=== PATIENT | male | born 1960 | race African-American/Black ===

== ENCOUNTER 2017-06-16 14:05 | Inpatient (IN) | payer SELFPAY ==
[~2017-06-16] VITALS: Ht 177.8 cm; Wt 89.0 kg
[2017-06-16] VITALS (10 sets, daily range): BP systolic 104–124; BP diastolic 70–82; PULSE 64–105; RESP 18–20; TEMP 97.4–98.8; O2SAT 96–100
[2017-06-16] MEDS ORDERED: SODIUM CHLORIDE 0.9% FLUSH 10 ML FLUSH IVF PRN (15:00)
[2017-06-16] MEDS ORDERED: HEPARIN SODIUM - IV 10,000 UNITS/10 ML VIAL IV PUSH STA (15:01)
[2017-06-16] MEDS ORDERED: ASPIRIN 81 MG CHEW TAB PO STA (15:01)
--- NOTE | 2017-06-16 15:08 | PD ---
HPI Chief Complaint: STEMI Alert Time Seen by Provider: 14:57 Travel History International Travel<30 days: No Contact w/Intl Traveler<30days: No Traveled to known affect area: No History of Present Illness HPI Patient is a 56-year-old male who presents the emergency room complaints of chest pain and shortness of breath. Patient reports that chest pain began last night around 1 AM, reports that he felt a "pressure to my chest." Patient reports that along with his chest pain, he has been feeling very short of breath. Patient reports that chest pain lasted from 1AM- 6AM, reports that his substernal "pressure" to his chest has resolved. Patient reports that he was concerned that he was still short of breath. Patient reports no medical history as he does not see a physician as outpatient. Patient reports that he is not a smoker, currently takes no medications. PFSH Past Medical History Medical History: Denies Significant Hx Tetanus Vaccination: Unknown Influenza Vaccination: No ?: Not Past Surgical History Surgical History: No Previous Surgery Social History Alcohol Use: No Tobacco Use: No Substance Use: No Allergies-Medications (Allergen,Severity, Reaction): Coded Allergies: No Known Allergies (Unverified , 06/16/17) Reported Meds & Prescriptions Reported Meds & Active Scripts Active No Active Prescriptions or Reported Medications Review of Systems General / Constitutional: No: Fever Eyes: No: Visual changes HENT: No: Headaches Cardiovascular: Positive: Chest Pain or Discomfort Respiratory: Positive: Shortness of Breath Gastrointestinal: No: Abdominal Pain Genitourinary: No: Dysuria Musculoskeletal: No: Pain Skin: No Rash Neurologic: No: Weakness Psychiatric: No: Depression Endocrine: No: Polydipsia Hematologic/Lymphatic: No: Easy Bruising Physical Exam Narrative GENERAL: Moderate distress SKIN: Focused skin assessment warm/dry. HEAD: Atraumatic. Normocephalic. EYES: Pupils equal and round. No scleral icterus. No injection or drainage. ENT: No nasal bleeding or discharge. Mucous membranes pink and moist. NECK: Trachea midline. No JVD. CARDIOVASCULAR: Regular rate and rhythm. No murmur appreciated. RESPIRATORY: No accessory muscle use. Clear to auscultation. Breath sounds equal bilaterally. GASTROINTESTINAL: Abdomen soft, non-tender, nondistended. Hepatic and splenic margins not palpable. MUSCULOSKELETAL: No obvious deformities. No clubbing. No cyanosis. No edema. NEUROLOGICAL: Awake and alert. No obvious cranial nerve deficits. Motor grossly within normal limits. Normal speech. PSYCHIATRIC: Appropriate mood and affect; insight and judgment normal. Data Data Last Documented VS Vital Signs Date Time Temp Pulse Resp B/P (MAP) Pulse Ox O2 Delivery O2 Flow Rate FiO2 06/16/17 15:07 06/16/17 14:47 99 Nasal Cannula 2.00 06/16/17 14:44 67 18 06/16/17 14:24 97.4 Orders Orders Electrocardiogram (06/16/17 ) Electrocardiogram (06/16/17 14:55) Ckmb (Isoenzyme) Profile (06/16/17 14:55) Complete Blood Count With Diff (06/16/17 14:55) Comprehensive Metabolic Panel (06/16/17 14:55) Magnesium (Mg) (06/16/17 14:55) Prothrombin Time / Inr (Pt) (06/16/17 14:55) Act Partial Throm Time (Ptt) (06/16/17 14:55) Troponin I (06/16/17 14:55) Lipase (06/16/17 14:55) Chest, Single Ap (06/16/17 14:55) Ecg Monitoring (06/16/17 14:55) Bilateral Bp Monitoring (06/16/17 14:55) Iv Access Insert/Monitor (06/16/17 14:55) Oximetry (06/16/17 14:55) Oxygen Administration (06/16/17 14:55) Sodium Chloride 0.9% Flush (Ns Flush) (06/16/17 15:00) I-Stat Profile (06/16/17 14:59) I-Stat Creatinine (06/16/17 14:59) Aspirin Chew (Aspirin Chew) (06/16/17 15:01) Heparin Inj (Heparin Inj) (06/16/17 15:01) Cardiac Catheterization (06/16/17 ) Admit Order (Ed Use Only) (06/16/17 15:08) CKMB (06/16/17 15:00) CKMB% (06/16/17 15:00) Labs Laboratory Tests Test 06/16/17 15:00 06/16/17 15:04 White Blood Count 8.4 TH/MM3 Red Blood Count 6.13 MIL/MM3 Hemoglobin 16.7 GM/DL Hematocrit 47.4 % Mean Corpuscular Volume 77.3 FL Mean Corpuscular Hemoglobin 27.3 PG Mean Corpuscular Hemoglobin Concent 35.3 % Red Cell Distribution Width 14.5 % Platelet Count 205 TH/MM3 Mean Platelet Volume 9.1 FL Neutrophils (%) (Auto) 81.9 % Lymphocytes (%) (Auto) 11.1 % Monocytes (%) (Auto) 6.2 % Eosinophils (%) (Auto) 0.1 % Basophils (%) (Auto) 0.7 % Neutrophils # (Auto) 6.9 TH/MM3 Lymphocytes # (Auto) 0.9 TH/MM3 Monocytes # (Auto) 0.5 TH/MM3 Eosinophils # (Auto) 0.0 TH/MM3 Basophils # (Auto) 0.1 TH/MM3 CBC Comment DIFF FINAL Differential Comment Prothrombin Time 10.3 SEC Prothromb Time International Ratio 1.0 RATIO Activated Partial Thromboplast Time 24.0 SEC Blood Urea Nitrogen 8 MG/DL Creatinine 0.98 MG/DL Random Glucose 150 MG/DL Total Protein 8.0 GM/DL Albumin 3.7 GM/DL Calcium Level 9.2 MG/DL Magnesium Level 2.0 MG/DL Alkaline Phosphatase 101 U/L Aspartate Amino Transf (AST/SGOT) 131 U/L Alanine Aminotransferase (ALT/SGPT) 36 U/L Total Bilirubin 0.5 MG/DL Sodium Level 139 MEQ/L Potassium Level 4.0 MEQ/L Chloride Level 103 MEQ/L Carbon Dioxide Level 24.7 MEQ/L Anion Gap 11 MEQ/L Estimat Glomerular Filtration Rate 96 ML/MIN Total Creatine Kinase 1120 U/L Creatine Kinase MB 189.1 NG/ML Creatine Kinase MB % 16.9 % Troponin I 6.28 NG/ML Lipase 107 U/L Bedside Hemoglobin 16.3 G/DL Bedside Hematocrit 48.0 % Bedside Sodium 136 MMOL/L Bedside Potassium 4.0 MMOL/L Bedside Chloride 101 MMOL/L Bedside Blood Urea Nitrogen 6 MG/DL Bedside Creatinine 0.9 MG/DL Bedside Glucose 166 MG/DL [facility] Medical Decision Making Medical Screen Exam Complete: Yes Emergency Medical Condition: Yes Medical Record Reviewed: Yes Interpretation(s) EKG at 1448: NSR at 67bpm, qt/qtc: 394/410, patient with st seg elevation II, III, aVF, no previous ekg to compare Differential Diagnosis STEMI, arrhythmia Narrative Course During the course of the patients emergency department visit, the patients history, examination, and differential diagnosis were reviewed with the patient. The patient was placed on a buggy loader with oximetry and frequent blood pressure monitoring. The patient had an IV access obtained and blood work sent for analysis. The patient was initially provided aspirin as well as IV heparin. Patient's EKG concerning for ST segment elevations in the inferior leads, there are no prior EKGs to compare. Patient currently denies active chest pain at this time, reports shortness of breath only. case reviewed with Dr. Jimenez who will take patient to collaborative teacher. STEMI alert called overhead. Diagnosis Primary Impression: ST elevation (STEMI) myocardial infarction Qualified Codes: I21.3 - ST elevation (STEMI) myocardial infarction of unspecified site Admitting Information Admitting Physician Requests: Admit Scripts No Active Prescriptions or Reported Meds Yuliana Clemons DO Jun 16, 2017 15:08
[2017-06-16] MEDS ORDERED: MIDAZOLAM HCL 2 MG/2 ML VIAL ONE (15:16)
[2017-06-16 15:20] LABS: AUTOMATED NEUTROPHIL # 6.9 TH/MM3 (1.8-7.7); BASOPHIL # 0.1 TH/MM3 (0-0.2); BASOPHIL % 0.7 % (0.0-2.0); EOSINOPHIL % 0.1 % (0.0-4.0); HEMATOCRIT 47.4 % (39.0-51.0); HEMOGLOBIN 16.7 GM/DL (13.0-17.0); LYMPH % 11.1 % (9.0-44.0); LYMPHOCYTE # 0.9 TH/MM3 (1.0-4.8); MEAN CELL VOLUME 77.3 FL (80.0-100.0); MEAN CORPUSCULAR HEMOGLOBIN 27.3 PG (27.0-34.0); MEAN CORPUSCULAR HGB CONC 35.3 % (32.0-36.0); MEAN PLATELET VOLUME 9.1 FL (7.0-11.0); MONO % 6.2 % (0.0-8.0); MONOCYTE # 0.5 TH/MM3 (0-0.9); NEUT % 81.9 % (16.0-70.0); PLATELET COUNT 205 TH/MM3 (150-450); RED BLOOD COUNT 6.13 MIL/MM3 (4.50-5.90); RED CELL DISTRIBUTION WIDTH 14.5 % (11.6-17.2); WHITE BLOOD COUNT 8.4 TH/MM3 (4.0-11.0)
[2017-06-16] MEDS ORDERED: CANGRELOR TETRASODIUM 50,000 MCG VIAL ONE (15:24)
--- NOTE | 2017-06-16 15:25 | RADRPT ---
EXAM DATE/TIME: 06/16/2017 15:04 [place] COMPARISON: No previous studies available for comparison. INDICATIONS : Stemi alert MEDICAL HISTORY : Unobtainable SURGICAL HISTORY : Unobtainable ENCOUNTER: Initial ACUITY: 1 day PAIN SCORE: Non-responsive. LOCATION: Bilateral chest FINDINGS: A single view of the chest demonstrates the lungs to be symmetrically aerated without evidence of mas s, infiltrate or effusion. The cardiomediastinal contours are unremarkable. Osseous structures are intact. CONCLUSION: Normal examination. Alfredo Parr MD on June 16, 2017 at 15:22 Board Certified Radiologist. This report was verified electronically.
[2017-06-16 15:31] LABS: PROTHROMBIN TIME - PATIENT 10.3 SEC (9.8-11.6)
[2017-06-16] MEDS ORDERED: HEPARIN SODIUM - IV 10,000 UNITS/10 ML VIAL ONE (15:37)
[2017-06-16] MEDS ORDERED: HEPARIN-NS/PF FLUSH BAG 2,000 ML IV FLUSH ONE (15:37)
[2017-06-16] MEDS ORDERED: NITROGLYCERIN INJ 5 ML ONE (15:37)
[2017-06-16 15:47] LABS: ALBUMIN 3.7 GM/DL (3.4-5.0); AST (GOT) 131 U/L (15-37); BICARBONATE 24.7 MEQ/L (21.0-32.0); BLOOD UREA NITROGEN 8 MG/DL (7-18); CALCIUM 9.2 MG/DL (8.5-10.1); CHLORIDE 103 MEQ/L (98-107); CREATININE 0.98 MG/DL (0.60-1.30); GLOMERULAR FILTRATION RATE 96 ML/MIN (>89); GLUCOSE,RANDOM 150 MG/DL (74-106); SODIUM (NA) 139 MEQ/L (136-145)
[2017-06-16] MEDS ORDERED: TICAGRELOR 90 MG TAB PO ONE (15:57)
[2017-06-16 16:01] LABS: ALKALINE PHOSPHATASE 101 U/L (45-117); ALT (GPT) 36 U/L (12-78); TOTAL BILIRUBIN ADULT 0.5 MG/DL (0.2-1.0)
[2017-06-16 16:13] LABS: TROPONIN I 6.28 NG/ML (0.02-0.05)
[2017-06-16] MEDS ORDERED: LIDOCAINE 2% JELLY 30 ML TUBE TOP PRN (16:15)
[2017-06-16] MEDS ORDERED: IOHEXOL 350 MG/ML 100 ML BTL (for Cath Lab) OTHER ONE (16:15)
[2017-06-16] MEDS ORDERED: ACETAMINOPHEN 325 MG TAB PO PRN (16:15)
[2017-06-16] MEDS ORDERED: MISC INFORMATION XX ONE ×2 (16:15)
--- NOTE | 2017-06-16 16:18 | CATHPROC ---
[employer] HIS Report Study Information Study Number Admission Scheduled Start Study Start [id number] Jun 16 2017 2:05PM 06/16/2017 Jun 16 2017 3:08PM [facility] Service Cardiac Catheterization Admit Source Facility Department Emergency department [facility] Physician and Clinical Staff Initial Alfredo Rudd Obstetrician And GynaecologistYuliana CorleyRN Obstetrician And Gynaecologistromel Mireles RN, Sebastian Obstetrician And GynaecologistRamírez Atkins RN Other cathlab, cathlab Recorder Boo Hansen RCIS(BS) Recorder Yelena Churchill BSN Scrub Karol Guerrero,SAFETY SEALER TECH2 Procedures Performed Procedure Location (Site) Vessel Name Coronary Angiograms LCA Left Coronary Coronary Angiograms RCA Right Coronary Drug Eluting Inflatio RCA Prox Right Coronary L Heart Cath PTCA RCA Prox Right Coronary Wire insertion Fem Art (right) Femoral Art Wire insertion Radial (right) Radial Art. Equipment Time Personal Care Worker Description Size Mfg Part Number Used/Scraped TRANSDUCER, TRUWAVE [id number] 15:10 BUENO ARTHUR * Used W/STOCKCOCK *[id number] *[id number] [id number] *[id number] *[id number] *[id number] 15:54 [employer]IG/[employer] ANGIOSEAL, FR6 VIP FR 6 Used *[id number] 15:10 Hua Kang PACK, CCL CUSTOM * Used *[id number] 15:10 Hua Kang SUPPORT, ARTERIAL ADULT 02814 *[id number] Used [id number] 15:10 mktg PACER PEN, SKIN DUAL W/ RULER * Used *[id number] 15:41 [employer] BALLOON, 2.0 X 15MM EUPHORA 15MM Used *[id number] 15:46 [employer] STENT, 2.5 38MM GHADA 2.5 38MM [id number] Used [id number] 15:43 [employer] MEDICAL 30 HARMONY INDEFLATOR Used *[id number] BAND, RADIAL COMPRESSION TR [id number] 15:59 [employer] MEDICAL 24CM Used SHORT 24 *[id number] SHEATH, FR6 RADIAL PRELUDE 15:10 [employer] MEDICAL FR 6 [id number] Used EASE 11CM [id number] 15:28 [employer] MEDICAL SHEATH, FR6.5 PRELUDE 11CM FR 6.5 038ACT Used *[id number] 15:10 [employer] MEDICAL WIRE, EXCHANGE 260CM 3MMJ 260CM Used *[id number] 15:10 [employer] OMNIPAQUE, 350 MG, 150ML 150ML [id number] Used [id number] 15:10 [employer] BLANKET,WARM AIR CCL * Used *[id number] WIRE, RUNTHROUGH NS FLOPPY [id number] 15:41 [employer] MEDICAL 180CM Used .014 180CM *[id number] Equipment Model, Serial, Lot Number and Expiration Data Description Model Number Serial Number Lot Number Expiration Date ANGIOSEAL, KYREE [facility] [id number] 12-22-2017 STENT, 2.5 38MM GHADA [id number] 02-28-2019 History: Allergies Allergy Reaction No Known Allergies History: Risk Factors Family History of Hypertension Dyslipidemia Previous AK Previous Heart Failure Premature CAD No No No No No Prior Valve Prior PCI Prior CABG Surgery No No No Cerebrovascular Peripheral Artery Chronic Lung On Dialysis Diabetes Disease Disease Disease No No No No No History: Stress Tests Stress or Imaging Studies Performed No History: Other Current Smoker No Labs Hgb (g/dl) Hct (%) WBC (l/cumm) Platelets (thousands) 11.60-17.00 35.00-51.00 4.00-11.00 150.00-450.00 16.7 47.4 8.4 205 Glucose (mg/dl) BUN (mg/dl) Creatinine (mg/dl) BUN:Creatinine (1:x) 74.00-106.00 7.00-18.00 0.50-1.30 10.00-20.00 150 8 0.9 8.9 Na (meq/l) K (meq/l) 136.00-145.00 3.50-5.10 139 4 INR (PTT:PT) 0.90-1.10 1 Troponin I (ng/ml) CPK-MB (ng/ML) 0.02-0.05 0.50-3.60 6.28 Not Drawn Medication Medication Total Dose (Bolus/Oral) Medication Total Dosage/Unit 1% XYLOCAINE 15 mL BRILINTA 180 mg FENTANYL 50 mcg HEPARIN 5000 units NTG (IC) 400 mcg VERSED 2 mg Medications (Bolus/Oral) Medication Time Given Dosage/Unit Administered By Reason VERSED 06/16/2017 3:17:21 PM 2 mg Adamy, Yuliana 2 mg VERSED given in lab by Yuliana Hwang, POLLY via Peripheral IV. Ordered by Alfredo Jimenez. FENTANYL 06/16/2017 3:18:24 PM 50 mcg Yuliana Hwang 50 mcg FENTANYL given in lab by Yuliana Hwang, POLLY via Peripheral IV. Ordered by Alfredo Jimenez. 1% XYLOCAINE 06/16/2017 3:23:13 PM 5 mL Alfredo Jimenez 5 mL 1% XYLOCAINE given in lab by Alfredo Jimenez in Right Radial via Subcutaneous. Ordered by Alfredo Jimenez. HEPARIN 06/16/2017 3:26:24 PM 5000 units Ramírez Galicia 5000 units HEPARIN given in lab by Ramírez Galicia RN in Left Antecubital via Peripheral IV. Ordered by Alfredo Jimenez. NTG (IC) 06/16/2017 3:26:54 PM 200 mcg Alfredo Jimenez 200 mcg NTG given in lab by Alfredo Jimenez in Right Radial via Intra-arterial. Ordered by Dougie Jimenez. 1% XYLOCAINE 06/16/2017 3:26:56 PM 10 mL Alfredo Jimenez 10 mL 1% XYLOCAINE given in lab by Alfredo Jimenez in Right Groin via Subcutaneous. Ordered by Alfredo Jimenez. NTG (IC) 06/16/2017 3:50:36 PM 200 mcg Alfredo Jimenez 200 mcg NTG (IC) given in lab by Alfredo Jimenez via Intra-coronary. Ordered by Alfredo Jimenez. BRILINTA 06/16/2017 3:59:20 PM 180 mg Ramírez Galicia 180 mg BRILINTA given in lab by Ramírez Galicia, POLLY. Ordered by Alfredo Jimenez. Medication (Drip) Medication Time Given Dosage/Unit Concentration/Unit Diluent (ml) Solution IV Solutions 06/16/2017 3:15:25 PM 50 mL (IV) NaCl .9 IV Solutions given in lab by Yuliana Hwang RN in Left Antecubital via Peripheral IV. Pump/Drip Lane w using NaCl .9. Ordered by Alfredo Jimenez. KENGREAL BOLUS 06/16/2017 3:41:40 PM 13.5 mL 13.5 mL KENGREAL BOLUS given in lab by Ramírez Galicia RN in Left Antecubital via Peripheral IV. Ordere d by Alfredo Jimenez. KENGREAL DRIP 06/16/2017 3:43:32 PM 108 mL/hr 50 mL 250 NaCl .9 108 mL/hr KENGREAL DRIP given in lab by Ramírez Galicia RN via Peripheral IV. Pump/Drip Flow = 540 ml/h r using NaCl .9 with a concentration of 50 mL in 250 ml. Ordered by Alfredo Jimenez. Initial Case Assessment Cardiovascular HR Rhythm NIBP Chest Pain 82 sr 155/110 5 Edema Present Skin color Skin None Normal Warm Dry Circulatory - Right Pulses Dorsalis Pedis Femoral Radial 3 2 2 Scale (0,1,2,3,4,d) Scale (0,1,2,3,4,d) Circulatory - Lower Extremities Color Lower Right Color Lower Left Normal Normal Neurological State Oriented to time-place- Alert Moves all extremities person Respiration - General Respiration Rate SpO2 (%) O2 (lpm) (B/min) 22 99 2 Final Case Assessment Cardiovascular HR Rhythm NIBP Chest Pain 73 sr 134/91 5 Edema Present Skin color Skin None Normal Warm Dry Circulatory - Right Pulses Dorsalis Pedis Femoral Radial 3 2 2 Scale (0,1,2,3,4,d) Scale (0,1,2,3,4,d) Circulatory - Lower Extremities Color Lower Right Color Lower Left Normal Normal Neurological State Oriented to time-place- Alert Moves all extremities person Respiration - General Respiration Rate SpO2 (%) O2 (lpm) (B/min) 18 96 2 Chronological Log Time Study Chronological Log 15:02:12 Emergency Room notified that [facility] is ready. 15:12:47 Patient arrived via Bed. 15:12:48 Patient Name, D.O.B, / Armband Verified By R.N. 15:13:22 Consent signed by the physician and the patient and verified by the [facility] staff. 15:13:27 Verbal Stimulation=2 Physical Stimulation=2 Airway=2 Respiration=2 TOTAL=8. (0=absent, 1=li mited, 2=present) 15:13:46 Disposable Defibrillator Pads Placed On Patient. 15:15:17 A # 18 IV was noted in the Antecubital (left). Grade = 0 IV Solutions given in lab by Yuliana Hwang, POLLY in Left Antecubital via Peripheral IV. Pump/Dr ip Flow using NaCl .9. 15:15:25 Ordered by Alfredo Jimenez. 15:15:41 MD arrived. 15:16:57 Patient has been NPO for Less than 6Hrs. 15:17:04 Skin Breakdown- none per patient 15:17:16 History and physical on the chart or being dictated. 15:17:21 2 mg VERSED given in lab by Yuliana Hwang, RN via Peripheral IV. Ordered by Gregg Jimenez 15:18:22 Reference ECG taken 15:18:24 50 mcg FENTANYL given in lab by Yuliana Hwang, RN via Peripheral IV. Ordered by St eloy Jimenez. Vitals capture started with the following parameters, Patient=Adult, Interval=5 min, Initial Pr ztukna=569 mmHg, 15:18:30 Deflation Rate=5 mmHg, Cuff placed on Left Arm Assessment: Initial Case, HR=82 BPM, Rhythm=sr, NBGN=501/110 mmhg, Chest Pain=5, Edema=None, Co bob=Normal, Skin = Warm, Dry Right Pulses: Johnnie Ped=3, Femoral=2, Radial=2 15:18:34 Lower Right Extremities: Color=Normal Lower Left Extremities: Color=Normal Neurological: State=Alert, Ox3, KNUTSON Respiration: Resp=22 B/min, SpO2=99 %, O2=2 lpm 15:18:44 Right Radial and groin(s) prepped with 2% chlorhexidine, and draped after a 3 min. waiting time. 15:19:58 HR=87 bpm, GQNN=706/110 mmhg, SpO2=96.0 %, Resp=18 B/min, Pain=5, Tesha=10, Chappell=2 15:21:53 Contrast Scanned 15:21:54 Immediate Presedation assesment performed by physician. Time Out. Correct patient, correct procedure, correct physician, power injector not loaded with contrast with surgical 15:21:59 team present. Time Out Concurred by MD and individual staff in procedure. 15:22:14 Case Start 15:23:13 5 mL 1% XYLOCAINE given in lab by Alfredo Jimenez in Right Radial via Subcutaneous. Ordered by Alfredo Jimenez. 15:23:53 Access site was Right Radial Artery. 15:24:08 HR=73 bpm, YTZU=349/97 mmhg, SpO2=98.0 %, Resp=17 B/min, Pain=5, Tesha=10, Chappell=2 15:24:15 Pressure channel 1 zeroed. A SHEATH, FR6 RADIAL PRELUDE EASE 11CM FR 6 was advanced into the Radial (right) using the Perc utaneous 15:24:20 technique. 15:25:58 A WIRE, EXCHANGE 260CM 3MMJ 260CM was inserted via Radial (right). 15:26:24 5000 units HEPARIN given in lab by Ramírez Galicia RN in Left Antecubital via Peripheral IV. Ordered by Alfredo Jimenez. 15:26:54 200 mcg NTG given in lab by Alfredo Jimenez in Right Radial via Intra-arterial. Ordered by Alfredo Hollingsworth. 15:26:56 10 mL 1% XYLOCAINE given in lab by Alfredo Jimenez in Right Groin via Subcutaneous. Ordered by Alfredo Jimenez. 15:27:13 Wire removed 15:28:06 Access site was Right Femoral Artery. 15:28:25 A SHEATH, FR6.5 PRELUDE 11CM FR 6.5 was advanced into the Fem Art (right) using the Percuta neous technique. A JL 3.5 INFINITI CATHETER FR 5 was advanced over a wire. OMNIPAQUE, 350 MG, 150ML 150ML was us ed for 15:29:00 injections. 15:29:09 HR=70 bpm, DWST=999/85 mmhg, SpO2=94.0 %, Resp=13 B/min, Pain=5, Tesha=10, Chappell=2 Recorded Pressure: Ao, HR=75, Condition=Condition 1 15:29:43 (Aorta) Ao 110/71/88 15:30:02 The LCA was injected and visualized at various angles. OMNIPAQUE, 350 MG, 150ML 150ML used . After removing the current catheter a JL 4.0 INFINITI CATHETER FR 6 was advanced over a WIRE, E XCHANGE 260CM 15:30:52 3MMJ 260CM. 15:34:04 HR=78 bpm, EKYB=316/84 mmhg, SpO2=95.0 %, Resp=16 B/min, Pain=0, Tesha=10, Chappell=2 After removing the current catheter a AL 2 INFINITI CATHETER FR 6 was advanced over a WIRE, EXC HANGE 260CM 15:35:16 3MMJ 260CM. 15:37:56 The LCA was injected and visualized at various angles. OMNIPAQUE, 350 MG, 150ML 150ML used . 15:39:07 HR=75 bpm, MRIQ=498/82 mmhg, SpO2=96.0 %, Resp=17 B/min, Pain=5, Tesha=10, Chappell=2 After removing the current catheter a JR 4.0 GUIDE CATHETER FR 6 was advanced over a WIRE, EXCH BRADEN 260CM 15:39:12 3MMJ 260CM. 15:40:27 The RCA was injected and visualized at various angles. OMNIPAQUE, 350 MG, 150ML 150ML used . 15:41:00 Catheter was removed 15:41:12 A WIRE, RUNTHROUGH NS FLOPPY .014 180CM 180CM was inserted via Fem Art (right). 13.5 mL KENGREAL BOLUS given in lab by Ramírez Galicia RN in Left Antecubital via Peripheral IV. Ordered by Tony 15:41:40 Alfredo. 15:42:14 Interventional wire has crossed the lesion A BALLOON, 2.0 X 15MM EUPHORA 15MM was inserted over WIRE, RUNTHROUGH NS FLOPPY .014 180CM 180C M via 15:42:34 the Fem Art (right). A BALLOON, 2.0 X 15MM EUPHORA 15MM over a WIRE, RUNTHROUGH NS FLOPPY .014 180CM 180CM in the RC A 15:42:49 Prox was inflated using a 30 HARMONY INDEFLATOR at 10 harmony for 20 sec. 108 mL/hr KENGREAL DRIP given in lab by Ramírez Galicia RN via Peripheral IV. Pump/Drip Flow = 54 0 ml/hr using NaCl 15:43:32 .9 with a concentration of 50 mL in 250 ml. Ordered by Alfredo Jimenez. 15:44:04 HR=96 bpm, DYLU=631/89 mmhg, Resp=19 B/min, Pain=0, Tesha=10, Chappell=2 15:44:42 Balloon Removed. A STENT, 2.5 38MM GHADA 2.5 38MM was advanced through a JR 4.0 GUIDE CATHETER FR 6 over a WIRE, 15:46:49 RUNTHROUGH NS FLOPPY .014 180CM 180CM. A STENT, 2.5 38MM GHADA 2.5 38MM was deployed using a 30 HARMONY INDEFLATOR at 18 atmospheres for 15 seconds in 15:47:27 the RCA Prox. 15:48:14 Re-inflated the stent balloon in the RCA Prox to 8 HARMONY for 30 seconds. 15:49:07 WO=801 bpm, CNJB=569/98 mmhg, SpO2=99.0 %, Resp=18 B/min, Pain=5, Tesha=10, Chappell=2 15:49:50 Delivery device removed 15:50:36 200 mcg NTG (IC) given in lab by Alfredo Jimenez via Intra-coronary. Ordered by Carleen Jimenez en. 15:52:38 Wire removed 15:54:03 Catheter(s) removed without difficulty 15:54:10 HR=79 bpm, NXHD=403/80 mmhg, SpO2=97.0 %, Resp=17 B/min, Pain=0, Tesha=10, Chappell=2 15:55:33 ANGIOSEAL, FR6 VIP FR 6 placement in the Fem Art (right) 15:56:27 Case End 15:56:33 No case complications noted. 15:56:34 Cine recording checked. 15:57:08 Sterile dressing applied to site 15:59:09 HR=80 bpm, RCHI=546/77 mmhg, Resp=21 B/min, Pain=0, Tesha=10, Chappell=2 15:59:20 180 mg BRILINTA given in lab by Ramírez Galicia, RN. Ordered by Alfredo Jimenez. Radial Compression Device Used. 15 mLs of air placed in BAND, RADIAL COMPRESSION TR SHORT 24 24 CM. Affected 16:01:16 hand 96 % O2 saturation. 16:04:06 HR=79 bpm, VXKY=731/93 mmhg, Resp=24 B/min, Pain=0, Tesha=10, Chappell=2 16:05:20 Bedside Report will be given. 16:05:23 Implantable Device card placed in patient's chart. 16:05:26 A Left Heart Cath was performed. 16:09:10 HR=73 bpm, XONZ=542/85 mmhg, SpO2=98.0 %, Resp=22 B/min, Pain=0, Tesha=10, Chappell=2 16:12:36 [facility]: Final Case, HR=73 BPM, Rhythm=sr, SZST=370/91 mmhg, Chest Pain=5, Edema=None, Color =Normal, Skin = Warm, Dry Right Pulses: Johnnie Ped=3, Femoral=2, Radial=2 16:14:09 Lower Right Extremities: Color=Normal Lower Left Extremities: Color=Normal Neurological: State=Alert, Ox3, KNUTSON Respiration: Resp=18 B/min, SpO2=96 %, O2=2 lpm 16:14:11 GQMI=629/91 mmhg, Pain=0, Tesha=10, Chappell=2 End Study - Contrast Media Used In Study Contrast Total Opened (mL) Total Used (mL) Total Wasted (mL) Omnipaque 80 80 0 End Study - Maximum Contrast Load Max Contrast Load (mL) 505.1 End Study - Radiation Exposure Fluoro Time (minutes) 9.9 End Study - Patient Disposition Complications Transferred To Interventional Outcome No Telemetry Bed successful
--- NOTE | 2017-06-16 16:20 | MB ---
cc: Alfredo Jimenez MD DATE: 06/16/[address]: [address] elevation myocardial infarction. HISTORY OF PRESENT ILLNESS: This is a 56-year-old gentleman without significant past medical history, but does not follow up with a physician. He complains of acute onset of substernal chest pain. It has been intermittent, but more recently developed chest pain and shortness of breath. Electrocardiogram showed inferior ST elevation and ST elevation MT protocol initiated. PAST MEDICAL HISTORY: None. SOCIAL HISTORY: Denies alcohol, tobacco or drug use. ALLERGIES: NO KNOWN DRUG ALLERGIES. MEDICATIONS: None. REVIEW OF SYSTEMS: A 12-point review of system was performed and is negative unless otherwise noted in the History Of Present Illness. PHYSICAL EXAMINATION: VITAL SIGNS: Temperature 97, pulse 68, blood pressure 112/76 mmHg. GENERAL: Alert and oriented x 3, in no acute distress. HEENT: Exam shows pupils reactive to light and accommodation. Extraocular movements are intact. NECK: No elevation of jugular venous distention. No thyromegaly, lymphadenopathy, no carotid bruits. LUNGS: Clear to auscultation bilaterally. CARDIOVASCULAR EXAM: Regular rate and rhythm. No murmurs, rubs or gallops. ABDOMEN: Nontender, nondistended. Good bowel sounds. No hepatosplenomegaly. EXTREMITIES: No clubbing, cyanosis or edema. Good peripheral pulses. NEUROLOGIC: Cranial nerves intact. Motor and sensory grossly intact. LABORATORY DATA: WBC 8.4, hemoglobin 16.7, platelet count is 205. INR is 1.0. Sodium 136, potassium 4.0, BUN is 8, creatinine 0.98. ASSESSMENT: ST elevation myocardial infarction. PLAN: The risks, benefits and alternatives were discussed with the patient. The patient understood and consented to the procedure. Alfredo Jimenez MD KARI/SB , 04:07 PM , 04:19 PM
--- NOTE | 2017-06-16 16:29 | MA ---
cc: Alfredo Jimenez MD DATE: 06/16/2017 INDICATION: ST elevation HI. PROCEDURES PERFORMED. 1. Fluoroscopy with interpretation. 2. Coronary angiography. 3. Percutaneous intervention with drug-eluting stent to the right coronary artery. METHOD: Risks, benefits and alternatives were discussed with the patient. The patient understood and consented to the procedure. The patient was brought into the catheterization lab, placed on the catheterization table. The right wrist was prepped and draped in sterile fashion. The right wrist was cannulated and a 6-U[place]ayan, 7 cm sheath was placed. He had an overriding arch with the brachiocephalic coming off the descending portion of the aorta, making it incredibly difficult to get to the arch. Therefore, we aborted the radial approach. We went down to the right common femoral approach. A 6-Uruguayan, 11 cm sheath was placed without difficulty. CORONARY ANGIOGRAPHY: We took a great deal of time and had difficulty engaging the left main coronary artery. It took a very high angled takeoff off the left sinus of Valsalva. We went through 3 different catheters, finally able to engage with a 6-Uruguayan AL2 catheter. For angiography showed as follows: 1. Left main coronary artery is angiographically normal. 2. Left anterior descending coronary has an 80% stenosis just prior to the bifurcation with diagonal branch. Remainder of the vessels have mild luminal irregularities. 3. Left circumflex coronary artery gives rise to an obtuse marginal branch; it has a 90% stenosis present. 4. Right coronary artery is a dominant vessel giving rise to a posterior descending branch. The right coronary artery is 100% occluded proximally, heavy thrombotic burden. PERCUTANEOUS INTERVENTION: The right coronary was selectively engaged with a 6-U[place]ayan JR4 guide catheter. A 0.014, 180 cm Local Dirt Runthrough wire was navigated down to the distal posterior descending branch. A 2.0 x 15 mm Medtronic balloon was then deployed in the proximal segment. Repeat angiography showed orthodoxy of SHANTA 3 flow with severe residual stenosis through the proximal and mid-segment. A 2.5 x 38 mm RX Resolute Phelan stent was then deployed in the proximal extending into the mid-right coronary artery. Repeat angiography showed no residual stenosis, SHANTA 3 flow. Cangrelor in additional to heparin was administered throughout the entire procedure to maintain appropriate anticoagulation. CONCLUSIONS: 1. Severe multivessel coronary disease with acute thrombotically occluded right coronary artery. 2. Successful percutaneous intervention with a drug-eluting stent to the proximal extending in the mid-right coronary artery. PLAN: We will monitor the patient closely for any post-procedural complications. We will get 2-D echocardiogram and initiate aggressive medical therapy. We will have to discuss potential staged intervention of the LAD and obtuse marginal branch and the timing of doing so. In the meantime, we will transfer him over to the cardiac care unit. MD KARI Varghese/SB , 04:11 PM , 04:29 PM
[2017-06-16] MEDS ORDERED: PILL SPLITTER OTHER PRN (17:00)
[2017-06-16] MEDS ORDERED: BACITRACIN OINT 0.9 GM PKT TOP ONE (17:00)
[2017-06-16] MEDS ORDERED: CANGRELOR INJ 50,000 MCG in SODIUM CHLOR 0.9% 250 ML INJ 250 ML IV ONE (19:00)
[2017-06-16] MEDS: METOPROLOL TARTRATE 25 MG TAB PO SCH ×2 (21:00)
[2017-06-17] VITALS (20 sets, daily range): BP systolic 98–122; BP diastolic 55–84; PULSE 60–110; RESP 18–20; TEMP 98–98.8; O2SAT 95–98
[2017-06-17 04:42] LABS: AUTOMATED NEUTROPHIL # 5.1 TH/MM3 (1.8-7.7); BASOPHIL % 0.5 % (0.0-2.0); EOSINOPHIL # 0.1 TH/MM3 (0-0.4); EOSINOPHIL % 0.9 % (0.0-4.0); HEMATOCRIT 47.2 % (39.0-51.0); HEMOGLOBIN 15.9 GM/DL (13.0-17.0); LYMPH % 19.3 % (9.0-44.0); LYMPHOCYTE # 1.4 TH/MM3 (1.0-4.8); MEAN CORPUSCULAR HEMOGLOBIN 26.6 PG (27.0-34.0); MEAN CORPUSCULAR HGB CONC 33.7 % (32.0-36.0); MONO % 11.4 % (0.0-8.0); MONOCYTE # 0.8 TH/MM3 (0-0.9); NEUT % 67.9 % (16.0-70.0); PLATELET COUNT 173 TH/MM3 (150-450); RED BLOOD COUNT 5.98 MIL/MM3 (4.50-5.90); WHITE BLOOD COUNT 7.4 TH/MM3 (4.0-11.0)
[2017-06-17 05:08] LABS: CALCIUM 9.2 MG/DL (8.5-10.1); CREATININE 0.97 MG/DL (0.60-1.30)
[2017-06-17 05:26] LABS: CHOLESTEROL/ HDL RATIO 5.44 RATIO; HDL CHOLESTEROL 31.8 MG/DL (40.0-60.0)
--- NOTE | 2017-06-17 07:31 | PD.CARD.PN ---
Subjective Subjective Remarks Patient reports he is feeling much better today. No further chest pain or shortness of breath. Denies any palpitations overnight (Baudilio Red) Objective Medications Current Medications Medications (Trade) Dose Ordered Sig/Lori Route Start Time Stop Time Status Last Admin (NS Flush) 2 ml UNSCH PRN IVF 06/16/17 15:00 06/16/17 15:21 (Tylenol) 325 mg Q4H PRN PO 06/16/17 16:15 (Aspirin Chew) 81 mg DAILY PO 06/17/17 09:00 (Brilinta) 90 mg BID PO 06/17/17 09:00 (Xylocaine 2% Jelly) 1 applic UNSCH X1 PRN TOP 06/16/17 16:15 06/17/17 16:14 (Lopressor) 12.5 mg Q12HR PO 06/16/17 21:00 06/16/17 00:00 (Pill Splitter) 1 ea UNSCH PRN OTHER 06/16/17 17:00 Vital Signs / I&O Vital Signs Date Time Temp Pulse Resp B/P (MAP) Pulse Ox O2 Delivery O2 Flow Rate FiO2 06/17/17 06:00 72 06/17/17 05:00 92 06/17/17 04:00 60 06/17/17 03:00 98.0 60 18 109/68 (82) 97 06/17/17 03:00 99 06/17/17 02:00 101 06/17/17 01:00 107 06/17/17 00:00 110 06/16/17 23:00 98.8 105 18 124/78 (93) 98 06/16/17 23:00 105 06/16/17 22:00 87 06/16/17 21:00 90 06/16/17 20:00 82 06/16/17 19:00 80 06/16/17 19:00 98.1 80 18 104/70 (81) 97 06/16/17 18:00 88 06/16/17 17:00 98.0 78 20 124/82 (96) 96 06/16/17 17:00 96 06/16/17 15:07 06/16/17 14:47 99 Nasal Cannula 2.00 06/16/17 14:47 99 Nasal Cannula 2.00 06/16/17 14:44 67 18 112/76 (88) 100 Room Air 06/16/17 14:44 68 18 99 Room Air 06/16/17 14:24 97.4 64 18 106/73 (84) 100 I/O 06/16/17 06/16/17 06/16/17 06/17/17 06/17/17 06/17/17 07:00 15:00 23:00 07:00 15:00 23:00 Intake Total 700 ml 480 ml Output Total 800 ml 700 ml Balance -100 ml -220 ml Intake Oral 700 ml 480 ml Output Urine Total 800 ml 700 ml # Bowel Movements 0 Physical Exam GENERAL: Well-developed well-nourished. In no acute distress. NECK: No carotid bruits. No JVD. CARDIOVASCULAR: Regular rate and rhythm. No murmur appreciated. RESPIRATORY: No accessory muscle use. Clear to auscultation. Breath sounds equal bilaterally. MUSCULOSKELETAL: No clubbing or cyanosis. No edema. NEUROLOGICAL: Awake and alert. Normal speech. SKIN: Right wrist access site with no swelling or ecchymosis. Laboratory Laboratory Tests Test 06/16/17 15:00 06/16/17 15:04 06/17/17 03:48 White Blood Count 8.4 TH/MM3 7.4 TH/MM3 Red Blood Count 6.13 MIL/MM3 5.98 MIL/MM3 Hemoglobin 16.7 GM/DL 15.9 GM/DL Hematocrit 47.4 % 47.2 % Mean Corpuscular Volume 77.3 FL 79.0 FL Mean Corpuscular Hemoglobin 27.3 PG 26.6 PG Mean Corpuscular Hemoglobin Concent 35.3 % 33.7 % Red Cell Distribution Width 14.5 % 15.0 % Platelet Count 205 TH/MM3 173 TH/MM3 Mean Platelet Volume 9.1 FL 9.0 FL Neutrophils (%) (Auto) 81.9 % 67.9 % Lymphocytes (%) (Auto) 11.1 % 19.3 % Monocytes (%) (Auto) 6.2 % 11.4 % Eosinophils (%) (Auto) 0.1 % 0.9 % Basophils (%) (Auto) 0.7 % 0.5 % Neutrophils # (Auto) 6.9 TH/MM3 5.1 TH/MM3 Lymphocytes # (Auto) 0.9 TH/MM3 1.4 TH/MM3 Monocytes # (Auto) 0.5 TH/MM3 0.8 TH/MM3 Eosinophils # (Auto) 0.0 TH/MM3 0.1 TH/MM3 Basophils # (Auto) 0.1 TH/MM3 0.0 TH/MM3 CBC Comment DIFF FINAL AUTO DIFF Differential Comment AUTO DIFF CONFIRMED Prothrombin Time 10.3 SEC Prothromb Time International Ratio 1.0 RATIO Activated Partial Thromboplast Time 24.0 SEC Blood Urea Nitrogen 8 MG/DL 8 MG/DL Creatinine 0.98 MG/DL 0.97 MG/DL Random Glucose 150 MG/DL 100 MG/DL Total Protein 8.0 GM/DL Albumin 3.7 GM/DL Calcium Level 9.2 MG/DL 9.2 MG/DL Magnesium Level 2.0 MG/DL Alkaline Phosphatase 101 U/L Aspartate Amino Transf (AST/SGOT) 131 U/L Alanine Aminotransferase (ALT/SGPT) 36 U/L Total Bilirubin 0.5 MG/DL Sodium Level 139 MEQ/L 143 MEQ/L Potassium Level 4.0 MEQ/L 4.2 MEQ/L Chloride Level 103 MEQ/L 107 MEQ/L Carbon Dioxide Level 24.7 MEQ/L 28.0 MEQ/L Anion Gap 11 MEQ/L 8 MEQ/L Estimat Glomerular Filtration Rate 96 ML/MIN 97 ML/MIN Total Creatine Kinase 1120 U/L 3809 U/L Creatine Kinase MB 189.1 NG/ML 476.9 NG/ML Creatine Kinase MB % 16.9 % 12.5 % Troponin I 6.28 NG/ML Lipase 107 U/L Bedside Hemoglobin 16.3 G/DL Bedside Hematocrit 48.0 % Bedside Sodium 136 MMOL/L Bedside Potassium 4.0 MMOL/L Bedside Chloride 101 MMOL/L Bedside Blood Urea Nitrogen 6 MG/DL Bedside Creatinine 0.9 MG/DL Bedside Glucose 166 MG/DL Triglycerides Level 78 MG/DL Cholesterol Level 173 MG/DL LDL Cholesterol 126 MG/DL HDL Cholesterol 31.8 MG/DL Cholesterol/HDL Ratio 5.44 RATIO Imaging Last 24 hours Impressions Chest X-Ray 06/16/17 0395 Signed Impressions: Service Date/Time: Friday, June 16, 2017 15:04 - CONCLUSION: Normal examination. Alfredo Parr MD (Baudilio Red) Assessment and Plan Assessment and Plan 56-year-old male who presented as a STEMI alert STEMI: EKG consistent with acute inferior [place], status post cardiac catheterization 06/16 with PCI and stenting of occluded right coronary artery. Doing well overnight. Started on aspirin, Brilinta, metoprolol. Echo ordered. Coronary artery disease: Catheterization also showed 90% left circumflex and 80 % LAD lesions. Will need to plan on staged PCI. Lipid profile noted, add atorvastatin. (Baudilio Red) Assessment and Plan STEMI - PCI culprit vessel RCA. residual LAD/LCx CK elevated. IVF. 2d echo will discuss PCI LAD & LCx and timing, this hospitalization vs outpatient depending upon recovery short run afib. now NSR. likely due to [place]. on asa and brillinta. Will hold off on adding anticoagulant unless recurrence. cont BB statin NPO p MN ambulate (Alfredo Jimenez MD) Baudilio Red Jun 17, 2017 07:31 Alfredo Jimenez MD Jun 17, 2017 09:56
[2017-06-17] MEDS: METOPROLOL TARTRATE 25 MG TAB PO SCH ×2 (09:44→21:22)
[2017-06-17] MEDS: TICAGRELOR 90 MG TAB PO SCH ×2 (09:44→21:22)
[2017-06-17] MEDS: ASPIRIN 81 MG CHEW TAB PO SCH (09:45)
[2017-06-17] MEDS: SODIUM CHLOR 0.9% 1000 ML INJ 1,000 ML IV SCH ×2 (09:49→19:49)
--- NOTE | 2017-06-17 15:33 | ECHRPT ---
Indication: Chest Pain CONCLUSIONS Mildly dilated left ventricle. Wall thickness is measured at the upper limits of normal. The left ventricular systolic function is mildly reduced with an estimated ejection fraction in the range of 45- 50%. The right ventricle is moderately dilated. The right ventricular systoilc function is moderately decreased. The right atrial size is severely dilated. Mild thickening of the mitral valve leaflets. Trace mitral valve regurgitation. Trace aortic valve regurgitation. There is mild to moderate tricuspid valve regurgitation. The estimated pulmonary arterial pressure is 30.3 mmHg. Trivial pulmonary valve regurgitation. BP: 102 / 66 HR: 79 Rhythm: Sinus MEASUREMENTS (Male / Female) Normal Values Technical Quality:Fair 2D ECHO LV Diastolic Diameter PLAX 4.4 cm 4.2 - 5.9 / 3.9 - 5.3 cm LV Systolic Diameter PLAX 3.8 cm IVS Diastolic Thickness 1.0 cm 0.6 - 1.0 / 0.6 - 0.9 cm LVPW Diastolic Thickness 0.9 cm 0.6 - 1.0 / 0.6 - 0.9 cm LV Relative Wall Thickness 0.4 RV Internal Dim ED PLAX 3.3 cm LVOT Diameter 1.9 cm LA Systolic Diameter LX 3.1 cm 3.0 - 4.0 / 2.7 - 3.8 cm M-MODE Aortic Root Diameter MM 3.1 cm LA Systolic Diameter MM 3.1 cm LA Ao Ratio MM 1.0 AV Cusp Separation MM 1.9 cm DOPPLER AV Peak Velocity 84.0 cm/s AV Peak Gradient 2.8 mmHg LVOT Peak Velocity 68.4 cm/s LVOT Peak Gradient 1.9 mmHg AV Area Cont Eq pk 2.3 cm MV Area PHT 2.7 cm Mitral E Point Velocity 39.7 cm/s Mitral A Point Velocity 38.5 cm/s Mitral E to A Ratio 1.0 LV E' Lateral Velocity 9.7 cm/s Mitral E to LV E' Lateral Ratio 4.1 LV E' Septal Velocity 5.2 cm/s Mitral E to LV E' Septal Ratio 7.6 TR Peak Velocity 225.0 cm/s TR Peak Gradient 20.3 mmHg Right Atrial Pressure 10.0 mmHg Pulmonary Artery Systolic Pressu 30.3 mmHg Right Ventricular Systolic Press 30.3 mmHg FINDINGS LEFT VENTRICLE Mildly dilated left ventricle. Wall thickness is measured at the upper limits of normal. The left ventricular systolic function is mildly reduced with an estimated ejection fraction in the range of 45- 50%. RIGHT VENTRICLE The right ventricle is moderately dilated. The right ventricular systoilc function is moderately decreased. LEFT ATRIUM The left atrial size is normal. RIGHT ATRIUM The right atrial size is severely dilated. ATRIAL SEPTUM Normal atrial septal thickness without atrial level shunting by limited color doppler interrogation. AORTA The aortic root and proximal ascending aorta are normal in size on limited imaging. MITRAL VALVE Mild thickening of the mitral valve leaflets. Trace mitral valve regurgitation. AORTIC VALVE Trileaflet aortic valve. Trace aortic valve regurgitation. TRICUSPID VALVE Structurally normal tricuspid valve. There is mild to moderate tricuspid valve regurgitation. The estimated pulmonary arterial pressure is 30.3 mmHg. PULMONARY VALVE Trivial pulmonary valve regurgitation. VESSELS The inferior vena cava is normal in size. PERICARDIUM No pericardial effusion. Alfredo Jimenez MD, FACC (Electronically Signed) Final Date:17 June 2017 15:31
--- NOTE | 2017-06-17 18:22 | EKG ---
Date Performed: 06/16/2017 Time Performed: 14:48:53 PTAGE: 56 years EKG: Sinus rhythm WITH SHORT NV INTERVAL INFERIOR MYOCARDIAL INFARCTION age indeterminate NO PREVIOUS TRACING DOCTOR: David Puentes Interpretating Date/Time 06/17/2017 18:21:54
[2017-06-17] MEDS ORDERED: ATORVASTATIN 40 MG TAB PO SCH (21:00)
[2017-06-18] VITALS (13 sets, daily range): BP systolic 105–118; BP diastolic 62–82; PULSE 70–91; RESP 14–18; TEMP 98.1–98.6; O2SAT 96–98
[2017-06-18] MEDS: SODIUM CHLOR 0.9% 1000 ML INJ 1,000 ML IV SCH (04:15)
[2017-06-18 05:24] LABS: HEMATOCRIT 47.8 % (39.0-51.0); MEAN CORPUSCULAR HEMOGLOBIN 26.5 PG (27.0-34.0); MEAN CORPUSCULAR HGB CONC 33.6 % (32.0-36.0); MEAN PLATELET VOLUME 9.2 FL (7.0-11.0); PLATELET COUNT 188 TH/MM3 (150-450); RED BLOOD COUNT 6.05 MIL/MM3 (4.50-5.90); RED CELL DISTRIBUTION WIDTH 14.9 % (11.6-17.2); WHITE BLOOD COUNT 7.1 TH/MM3 (4.0-11.0)
[2017-06-18 05:50] LABS: BICARBONATE 26.6 MEQ/L (21.0-32.0); CREATININE 0.96 MG/DL (0.60-1.30)
--- NOTE | 2017-06-18 08:17 | PD.CARD.PN ---
Subjective Subjective Remarks Patient is doing well today. No chest pain, shortness breath, palpitations. No significant arrhythmias noted on telemetry overnight. Planning on staged PCI today, all questions answered. Objective Medications Current Medications Medications (Trade) Dose Ordered Sig/Lori Route Start Time Stop Time Status Last Admin (NS Flush) 2 ml UNSCH PRN IVF 06/16/17 15:00 06/16/17 15:21 (Tylenol) 325 mg Q4H PRN PO 06/16/17 16:15 (Aspirin Chew) 81 mg DAILY PO 06/17/17 09:00 06/17/17 09:45 (Brilinta) 90 mg BID PO 06/17/17 09:00 06/17/17 21:22 (Lopressor) 12.5 mg Q12HR PO 06/16/17 21:00 06/17/17 21:22 (Pill Splitter) 1 ea UNSCH PRN OTHER 06/16/17 17:00 (Lipitor) 40 mg HS PO 06/17/17 21:00 06/17/17 21:22 Sodium Chloride 1,000 ml @ 100 mls/hr Q10H IV 06/17/17 09:49 06/22/17 09:48 Vital Signs / I&O Vital Signs Date Time Temp Pulse Resp B/P (MAP) Pulse Ox O2 Delivery O2 Flow Rate FiO2 06/18/17 04:00 83 06/18/17 04:00 98.6 81 18 105/62 (76) 96 06/18/17 00:00 98.1 91 16 112/79 (90) 97 06/18/17 00:00 85 06/17/17 20:00 87 06/17/17 20:00 98.8 95 18 122/84 (97) 97 06/17/17 18:00 92 06/17/17 17:00 82 06/17/17 16:00 82 06/17/17 15:00 98.1 77 20 98/55 (69) 97 06/17/17 15:00 79 06/17/17 14:00 80 06/17/17 13:00 78 06/17/17 12:00 82 06/17/17 11:00 76 06/17/17 11:00 98.4 74 20 106/69 (81) 95 06/17/17 10:00 80 06/17/17 09:00 80 I/O 06/17/17 06/17/17 06/17/17 06/18/17 06/18/17 06/18/17 07:00 15:00 23:00 07:00 15:00 23:00 Intake Total 480 ml 960 ml 240 ml Output Total 700 ml 1000 ml 750 ml Balance -220 ml -40 ml -510 ml Intake Oral 480 ml 960 ml 240 ml Output Urine Total 700 ml 1000 ml 750 ml # Bowel Movements 0 0 Physical Exam GENERAL: Well-developed well-nourished. In no acute distress. NECK: No carotid bruits. No JVD. CARDIOVASCULAR: Regular rate and rhythm. No murmur appreciated. RESPIRATORY: No accessory muscle use. Clear to auscultation. Breath sounds equal bilaterally. MUSCULOSKELETAL: No clubbing or cyanosis. No edema. NEUROLOGICAL: Awake and alert. Normal speech. SKIN: Right wrist access site with no swelling or ecchymosis. Laboratory Laboratory Tests Test 06/17/17 23:01 06/18/17 03:57 06/18/17 04:57 Lab Scanned Report Lab Reports - Other [id number] Blood Urea Nitrogen 10 MG/DL Creatinine 0.96 MG/DL Random Glucose 97 MG/DL Calcium Level 9.0 MG/DL Sodium Level 143 MEQ/L Potassium Level 3.8 MEQ/L Chloride Level 105 MEQ/L Carbon Dioxide Level 26.6 MEQ/L Anion Gap 11 MEQ/L Estimat Glomerular Filtration Rate 99 ML/MIN Total Creatine Kinase 1083 U/L Creatine Kinase MB 41.9 NG/ML Creatine Kinase MB % 3.9 % White Blood Count 7.1 TH/MM3 Red Blood Count 6.05 MIL/MM3 Hemoglobin 16.0 GM/DL Hematocrit 47.8 % Mean Corpuscular Volume 79.0 FL Mean Corpuscular Hemoglobin 26.5 PG Mean Corpuscular Hemoglobin Concent 33.6 % Red Cell Distribution Width 14.9 % Platelet Count 188 TH/MM3 Mean Platelet Volume 9.2 FL Imaging Last Impressions Chest X-Ray 06/16/17 0196 Signed Impressions: Service Date/Time: Friday, June 16, 2017 15:04 - CONCLUSION: Normal examination. Alfredo Parr MD Assessment and Plan Assessment and Plan 56-year-old male who presented as a STEMI alert STEMI: EKG consistent with acute inferior [place], status post cardiac catheterization 06/16 with PCI and stenting of occluded right coronary artery. Doing well. Started on aspirin, Brilinta, metoprolol. Cardiomyopathy: Mild. Echo with EF 45-50%. Continue BB. BP won't allow addition of ACEi at this time. Coronary artery disease: Catheterization also showed 90% left circumflex and 80 % LAD lesions. Patient doing well, will plan on staged PCI today, continue IVF for elevated CK. Added atorvastatin. Short run of postprocedural atrial fibrillation 06/16: Likely secondary to [place]. No further episodes and remains in NSR. Will hold off on adding anticoagulant unless recurrence. Baudilio Red Jun 18, 2017 08:17
[2017-06-18] MEDS: METOPROLOL TARTRATE 25 MG TAB PO SCH (09:32)
[2017-06-18] MEDS: TICAGRELOR 90 MG TAB PO SCH (09:32)
[2017-06-18] MEDS: ASPIRIN 81 MG CHEW TAB PO SCH (09:32)
[2017-06-18] MEDS ORDERED: MIDAZOLAM HCL 2 MG/2 ML VIAL ONE (12:23)
[2017-06-18] MEDS ORDERED: PHENYLEPHRINE HCL 10 MG/ML VIAL ONE (12:55)
[2017-06-18] MEDS ORDERED: ATOR40TA16 PO (13:13)
[2017-06-18] MEDS ORDERED: BRIL90TA PO (13:13)
[2017-06-18] MEDS ORDERED: ASPI81 PO (13:13)
[2017-06-18] MEDS ORDERED: METO25TA3 PO (13:13)
--- NOTE | 2017-06-18 13:14 | HHI.DS ---
Discharge Summary Admission Date Jun 16, 2017 at 15:10 Admitting Diagnosis STEMI (1) ST elevation (STEMI) myocardial infarction ICD Codes: I21.3 - ST elevation (STEMI) myocardial infarction of unspecified site Status: Acute Procedures cardiac cath - PCI RCA MAGALY cardiac cath - PCI OM and proximal LAD Brief History presented with STEMI RCA s/p PCI MAGALY. brought back electively for staged intervention of OM1 and proximal LAD. no further recurrence of atrial fibrillation no ventricular arrhythmia CBC/BMP: 06/18/17 0457 06/18/17 0357 Significant Findings Laboratory Tests Test 06/16/17 15:00 06/16/17 15:04 06/17/17 03:48 06/17/17 23:01 Red Blood Count 6.13 MIL/MM3 (4.50-5.90) 5.98 MIL/MM3 (4.50-5.90) Mean Corpuscular Volume 77.3 FL (80.0-100.0) 79.0 FL (80.0-100.0) Neutrophils (%) (Auto) 81.9 % (16.0-70.0) Lymphocytes # (Auto) 0.9 TH/MM3 (1.0-4.8) Activated Partial Thromboplast Time 24.0 SEC (24.3-30.1) Random Glucose 150 MG/DL (74-106) Aspartate Amino Transf (AST/SGOT) 131 U/L (15-37) Total Creatine Kinase 1120 U/L (39-308) 3809 U/L (39-308) Creatine Kinase MB 189.1 NG/ML (0.5-3.6) 476.9 NG/ML (0.5-3.6) Creatine Kinase MB % 16.9 % (0.0-4.0) 12.5 % (0.0-4.0) Troponin I 6.28 NG/ML (0.02-0.05) Bedside Sodium 136 MMOL/L (137-144) Bedside Chloride 101 MMOL/L (102-111) Bedside Glucose 166 MG/DL (68-110) Mean Corpuscular Hemoglobin 26.6 PG (27.0-34.0) Monocytes (%) (Auto) 11.4 % (0.0-8.0) LDL Cholesterol 126 MG/DL (0-99) HDL Cholesterol 31.8 MG/DL (40.0-60.0) Test 06/18/17 03:57 06/18/17 04:57 Total Creatine Kinase 1083 U/L (39-308) Creatine Kinase MB 41.9 NG/ML (0.5-3.6) Red Blood Count 6.05 MIL/MM3 (4.50-5.90) Mean Corpuscular Volume 79.0 FL (80.0-100.0) Mean Corpuscular Hemoglobin 26.5 PG (27.0-34.0) Imaging Last Impressions Chest X-Ray 06/16/17 6885 Signed Impressions: Service Date/Time: Friday, June 16, 2017 15:04 - CONCLUSION: Normal examination. Alfredo Parr MD PE at Discharge GENERAL: SKIN: Warm and dry. HEAD: Normocephalic. EYES: No scleral icterus. No injection or drainage. NECK: Supple, trachea midline. No JVD or lymphadenopathy. CARDIOVASCULAR: Regular rate and rhythm without murmurs, gallops, or rubs. RESPIRATORY: Breath sounds equal bilaterally. No accessory muscle use. GASTROINTESTINAL: Abdomen soft, non-tender, nondistended. MUSCULOSKELETAL: No cyanosis, or edema. BACK: Nontender without obvious deformity. No CVA tenderness. Hospital Course no post procedural complications doing well. Pt Condition on Discharge: Good Discharge Disposition: Discharge Home Discharge Instructions DIET: Follow Instructions for: As Tolerated, No Restrictions, Heart Healthy Diet Activities you can perform: Weight Bearing as Alfredo Pena MD Jun 18, 2017 13:14
--- NOTE | 2017-06-18 13:19 | CATHPROC ---
[employer] HIS Report Study Information Study Number Admission Scheduled Start Study Start [id number] Jun 16 2017 3:10PM 06/18/2017 Jun 18 2017 11:48AM [facility] Cardiac Catheterization Admit Source Facility Department Emergency department [facility] Physician and Clinical Staff Initial Alfredo Rudd Chief Embalmer Lisa Villeda,POLLY Recorder Rachel Sanabria,RT(R) (BS) Scrub Antoinette Red,RT(R) Procedures Performed Procedure Location (Site) Vessel Name Coronary Angiograms LCA Left Coronary Drug Eluting Inflatio LAD Prox Left Coronary Drug Eluting Inflatio OM1 Prox CIRC Wire insertion Radial (right) Radial Art. Equipment Time Milling Operator Description Size Mfg Part Number Used/Scraped COPILOT VALVE, BLEEDBACK [id number] 12:25 [employer] Used CONTROL *[id number] TRANSDUCER, TRUWAVE [id number] 12:05 [employer] AR[employer]UR * Used W/STOCKCOCK *[id number] [phone] *[id number] *[id number] [id number] *[id number] 12:05 [employer] PACK, CCL CUSTOM * Used *[id number] 12:05 [employer] SUPPORT, ARTERIAL ADULT 31909 *[id number] Used [id number] 12:25 [employer] PACER PEN, SKIN DUAL W/ RULER * Used *[id number] 13:00 [employer] STENT, 2.5 12MM GHADA 2.5 12MM Used *[id number] 12:54 [employer] STENT, 3.0 12MM GHADA 3.0 12MM Used *[id number] 12:55 [employer] 30 RHONDA INDEFLATOR Used *[id number] BAND, RADIAL COMPRESSION TR [id number] 13:07 [employer] 24CM Used SHORT 24 *[id number] SHEATH, FR6 RADIAL PRELUDE 12:05 [employer] FR 6 [id number] Used EASE 11CM [id number] 12:05 [employer] WIRE, EXCHANGE 260CM 3MMJ 260CM Used *[id number] 12:25 [employer]OLD, 4 PORT * Used *[id number] 12:05 [employer] OMNIPAQUE, 350 MG, 150ML 150ML [id number] Used 12:25 [employer] OMNIPAQUE, 350 MG, 150ML 150ML [id number] Used [id number] 12:25 [employer],WARM AIR CCL * Used *[id number] WIRE, RUNTHROUGH NS FLOPPY 12:52 [employer] 180CM Used .014 180CM *[id number] Equipment Model, Serial, Lot Number and Expiration Data Description Model Number Serial Number Lot Number Expiration Date STENT, 2.5 12MM GHADA [id number] 02-25-2019 STENT, 3.0 12MM GHADA [id number] 04-17-2019 History: Current Medications Medication Dosage/Unit Route Frequency Last Date/Time Taken Beta Shawn Statins (any) ASA BRILLINTA History: Allergies Allergy Reaction No Known Allergies History: Risk Factors Family History of Hypertension Dyslipidemia Previous SC Previous Heart Failure Premature CAD No No No No No Prior Valve Prior PCI Prior PCIDate Prior CABG Surgery No Yes 06/16/2017 No Cerebrovascular Peripheral Artery Chronic Lung On Dialysis Diabetes Disease Disease Disease No No No No No History: Stress Tests Stress or Imaging Studies Performed No History: Other Current Smoker No Labs Hgb (g/dl) Hct (%) WBC (l/cumm) Platelets (thousands) 11.60-17.00 35.00-51.00 4.00-11.00 150.00-450.00 16.0 47.8 7.1 188 Glucose (mg/dl) BUN (mg/dl) Creatinine (mg/dl) BUN:Creatinine (1:x) 74.00-106.00 7.00-18.00 0.50-1.30 10.00-20.00 97 10 0.9 11.1 Na (meq/l) K (meq/l) 136.00-145.00 3.50-5.10 143 3.8 INR (PTT:PT) 0.90-1.10 1 Troponin I (ng/ml) CPK (u/l) CPK-MB (ng/ML) 0.02-0.05 26.00-308.00 0.50-3.60 6.28 41.9 3.9 Medication Medication Total Dose (Bolus/Oral) Medication Total Dosage/Unit 1% XYLOCAINE 1 mL FENTANYL 50 mcg HEPARIN 5000 units NTG (IC) 200 mcg VERSED 2 mg Medications (Bolus/Oral) Medication Time Given Dosage/Unit Administered By Reason VERSED 06/18/2017 12:40:21 PM 2 mg Lisa Villeda 2 mg VERSED given in lab by Lisa Villeda, POLLY in Left Antecubital via Peripheral IV. FENTANYL 06/18/2017 12:41:28 PM 50 mcg Lisa Villeda 50 mcg FENTANYL given in lab by Lisa Villeda, POLLY in Left Antecubital via Peripheral IV. 1% XYLOCAINE 06/18/2017 12:42:28 PM 1 mL Alfredo Jimenez 1 mL 1% XYLOCAINE given in lab by Alfredo Jimenez in Right Radial via Subcutaneous. NTG (IC) 06/18/2017 12:44:06 PM 200 mcg Alfredo Jimenez 200 mcg NTG (IC) given in lab by Alfredo Jimenez in Right Radial via Intra-arterial. HEPARIN 06/18/2017 12:45:47 PM 5000 units Lisa Villeda 5000 units HEPARIN given in lab by Lisa Villeda, RN in Left Antecubital via Peripheral IV. Medication (Drip) Medication Time Given Dosage/Unit Concentration/Unit Diluent (ml) Solution IV Solutions 06/18/2017 12:12:19 PM 0 mL (IV) 500 NaCl .9 IV Solutions given in lab by Lisa Villeda RN in Left Antecubital via Peripheral IV. Pump/Drip Lane w = 30 ml/hr using NaCl .9. Initial Case Assessment Cardiovascular HR Rhythm NIBP Chest Pain 88 reg 129/100 0 Edema Present Skin color Skin None Normal Warm Dry Circulatory - Right Pulses Dorsalis Pedis Femoral Radial 2 2 2 Scale (0,1,2,3,4,d) Scale (0,1,2,3,4,d) Neurological State Oriented to time-place- Alert Moves all extremities person Respiration - General Respiration Rate SpO2 (%) (B/min) 18 98 Chronological Log Time Study Chronological Log 12:11:58 Patient arrived via Bed. 12:11:58 Patient Name, D.O.B, / Armband Verified By R.N. 12:11:59 Consent signed by the physician and the patient and verified by the [facility] staff. 12:12:00 Pre-op and post- op instructions given; patient acknowledges understanding of instructions. 12:12:00 Verbal Stimulation=2 Physical Stimulation=2 Airway=2 Respiration=2 TOTAL=8. (0=absent, 1=li mited, 2=present) 12:12:08 Allens test performed on the right radial and ulnar artery. 12:12:11 Presedation assessment performed by [facility] RN. 12:12:12 Patient has been NPO for More than 6Hrs. 12:12:14 Skin Breakdown none per pt 12:12:15 Patient Warmer Placed on the Table. 12:12:17 Reva Prominences Protected 12:12:18 A # 20 IV was noted in the Antecubital (left). Grade = 0 IV Solutions given in lab by Lisa Villeda, RN in Left Antecubital via Peripheral IV. Pump/Dr ip Flow = 30 ml/hr using 12:12:19 NaCl .9. 12:12:19 History and physical on the chart or being dictated. Assessment: Initial Case, HR=88 BPM, Rhythm=reg, NTYP=878/100 mmhg, Chest Pain=0, Edema=None, Color=Normal, Skin = Warm, Dry 12:12:20 Right Pulses: Johnnie Ped=2, Femoral=2, Radial=2 Neurological: State=Alert, Ox3, KNUTSON Respiration: Resp=18 B/min, SpO2=98 % Vitals capture started with the following parameters, Patient=Adult, Interval=5 min, Initial Pr gyrqip=829 mmHg, 12:17:46 Deflation Rate=5 mmHg, Cuff placed on Unknown 12:18:19 HR=93 bpm, NABU=255/100 mmhg, XeW0=826.0 %, Resp=16 B/min, Pain=0, Tesha=10, Chappell=2 12:23:18 HR=83 bpm, KOBX=519/87 mmhg, SpO2=98.0 %, Resp=16 B/min, Pain=0, Tesha=10, Chappell=2 12:24:33 Right Radial and right groin prepped with 2% chlorhexidine, and draped after a 3 min. waiti ng time. 12:28:19 HR=84 bpm, OZIU=586/96 mmhg, SpO2=99.0 %, Resp=14 B/min, Pain=0, Tesha=10, Chappell=2 12:31:50 Pressure channel 1 zeroed. 12:32:37 Reference ECG taken 12:33:45 HR=80 bpm, PEJP=137/89 mmhg, SpO2=99.0 %, Resp=19 B/min, Pain=0, Tesha=10, Chappell=2 12:38:19 HR=88 bpm, PTRU=679/97 mmhg, SpO2=99.0 %, Resp=20 B/min, Pain=0, Tesha=10, Chappell=2 Time Out. Correct patient, correct procedure, correct physician, power injector not loaded with contrast with surgical 12:38:58 team present. Time Out Concurred by MD and individual staff in procedure. 12:39:06 Case Start 12:40:21 2 mg VERSED given in lab by Lisa Villeda, POLLY in Left Antecubital via Peripheral IV. 12:41:28 50 mcg FENTANYL given in lab by Lisa Villeda, POLLY in Left Antecubital via Peripheral IV. 12:42:28 1 mL 1% XYLOCAINE given in lab by Alfredo Jimenez in Right Radial via Subcutaneous. 12:43:21 Access site was right Radial Artery. 12:43:24 HR=85 bpm, KCUR=348/78 mmhg, SpO2=98.0 %, Resp=10 B/min, Pain=0, Tesha=10, Chappell=2 A SHEATH, FR6 RADIAL PRELUDE EASE 11CM FR 6 was advanced into the Radial (right) using the Perc utaneous 12:43:36 technique. 12:44:06 200 mcg NTG (IC) given in lab by Alfredo Jimenez in Right Radial via Intra-arterial. After removing the current catheter a AL 1.5 GUIDE CATHETER FR 6 was advanced over a WIRE, EXCH BRADEN 260CM 12:44:33 3MMJ 260CM. 12:45:39 The LCA was injected and visualized at various angles. OMNIPAQUE, 350 MG, 150ML 150ML used . 12:45:47 5000 units HEPARIN given in lab by Lisa Villeda, POLLY in Left Antecubital via Peripheral I V. After removing the current catheter a XB 4.0 GUIDE CATHETER FR 6 was advanced over a WIRE, EXCH BRADEN 260CM 12:46:37 3MMJ 260CM. 12:48:17 HR=77 bpm, NIBP=99/68 mmhg, Resp=11 B/min, Pain=0, Tesha=10, Chappell=2 12:50:21 The LCA was injected and visualized at various angles. OMNIPAQUE, 350 MG, 150ML 150ML used . Recorded Pressure: Ao, HR=78, Condition=Condition 1 12:51:10 (Aorta) Ao 103/74/87 12:51:24 A WIRE, RUNTHROUGH NS FLOPPY .014 180CM 180CM was inserted via Radial (right). 12:53:16 HR=96 bpm, PZAX=150/71 mmhg, Resp=13 B/min, Pain=0, Tesha=10, Chappell=2 A STENT, 3.0 12MM GHADA 3.0 12MM was advanced through a XB 4.0 GUIDE CATHETER FR 6 over a WIRE, 12:53:40 RUNTHROUGH NS FLOPPY .014 180CM 180CM. A STENT, 3.0 12MM GHADA 3.0 12MM was deployed using a 30 RHONDA INDEFLATOR at 12 atmospheres for 13 seconds in 12:54:41 the LAD Prox. 12:56:02 Delivery device removed 12:56:31 Wire removed 12:56:37 A WIRE, EXCHANGE 260CM 3MMJ 260CM was inserted via Radial (right). 12:57:04 Wire removed 12:58:00 A WIRE, RUNTHROUGH NS FLOPPY .014 180CM 180CM was inserted via Radial (right). 12:58:56 HR=78 bpm, VWST=084/86 mmhg, SpO2=92.0 %, Resp=16 B/min, Pain=0, Tesha=10, Chappell=2 A STENT, 2.5 12MM GHADA 2.5 12MM was advanced through a XB 4.0 GUIDE CATHETER FR 6 over a WIRE, 13:00:14 RUNTHROUGH NS FLOPPY .014 180CM 180CM. A STENT, 2.5 12MM GHADA 2.5 12MM was deployed using a 30 RHONDA INDEFLATOR at 16 atmospheres for 6 seconds in 13:00:33 the OM1 Prox. 13:01:14 Delivery device removed 13:02:35 Catheter was removed 13:02:36 Wire removed 13:02:39 Case End 13:03:24 HR=70 bpm, LXXN=802/67 mmhg, SpO2=95.0 %, Resp=19 B/min, Pain=0, Tesha=10, Chappell=2 13:05:29 Catheter(s) removed without difficulty Radial Compression Device Used. 10 mLs of air placed in BAND, RADIAL COMPRESSION TR SHORT 24 24 CM. Affected 13:06:07 hand 94 % O2 saturation. 13:06:37 No case complications noted. 13:06:40 Bedside Report will be given. 13:06:40 Implantable Device card placed in patient's chart. 13:07:58 Vitals capture stopped. 13:09:45 Patient moved to stretcher 13:10:26 [facility] called. Spoke to Gissel. 13:12:53 Patient moved to stretcher End Study - Contrast Media Used In Study Contrast Total Opened (mL) Total Used (mL) Total Wasted (mL) Omnipaque 45 45 0 End Study - Maximum Contrast Load Max Contrast Load (mL) 494.4 End Study - Radiation Exposure Fluoro Time (minutes) 6.3 End Study - Sheaths Sheaths Pulled By Sheath Hold Time (min) Antoinette Red End Study - Patient Disposition Complications Transferred To Interventional Outcome No Telemetry Bed successful
--- NOTE | 2017-06-18 13:49 | EKG ---
Date Performed: 06/17/2017 Time Performed: 04:55:32 PTAGE: 56 years EKG: Sinus arrhythmia Short IN interval Leftward axis Inferior infarct - age undetermined Latera l ST-T changes may be due to myocardial ischemia Abnormal ECG PREVIOUS TRACING : 06/16/2017 14.48 Since the previous tracing, no significant change noted DOCTOR: Luis Antonio Glasgow Interpretating Date/Time 06/18/2017 13:45:35
[2017-06-18] MEDS ORDERED: HEPARIN SODIUM - IV 10,000 UNITS/10 ML VIAL ONE (15:33)
[2017-06-18] MEDS ORDERED: IOHEXOL 350 MG/ML 50 ML BTL (for Cath Lab) OTHER ONE (15:33)
[2017-06-18] MEDS ORDERED: NITROGLYCERIN INJ 5 ML ONE (15:33)
== END 2017-06-18 18:01 | disposition home or self-care (01) | DRG 247 ==
LOC: NEPC 14:05 → NEDA 15:10 → HCPC 16:30
PROVIDERS: ADMIT Internal Medicine; ATTEND Internal Medicine
PROC: 027034Z Dilation of Coronary Artery, One Artery with Drug-eluting Intraluminal Device, Percutaneous Approach (ICD-10-PCS; principal; 2017-06-16)
PROC: 4A023N7 Measurement of Cardiac Sampling and Pressure, Left Heart, Percutaneous Approach (ICD-10-PCS; 2017-06-16)
PROC: B2111ZZ Fluoroscopy of Multiple Coronary Arteries using Low Osmolar Contrast (ICD-10-PCS; 2017-06-16)
PROC: B2151ZZ Fluoroscopy of Left Heart using Low Osmolar Contrast (ICD-10-PCS; 2017-06-16)
DX: I21.19 ST elevation (STEMI) myocardial infarction involving other coronary artery of inferior wall (principal); I25.10 Atherosclerotic heart disease of native coronary artery without angina pectoris; I42.9 Cardiomyopathy, unspecified; I48.91 Unspecified atrial fibrillation
CPT/HCPCS: 71045; 80048; 80053; 80061; 82550; 82552; 83690; 83735; 84484; 85025; 85027; 85610; 85730; 92928; 92929; 92941; 93005; 93306; 93454; 99152; 99153; C1725; C1760; C1769; C1874; C1887; C1893; C9460; G0269; J1644; J2250; J2370; J3010; Q9967